=== PATIENT | male | born 1985 | race Caucasian/White ===

== ENCOUNTER 2020-03-07 14:19 | Emergency (ER) | payer MEDICAID ==
[~2020-03-07] VITALS: Ht 188 cm; Wt 154.7 kg
[2020-03-07 14:35] VITALS: Ht 188 cm; Wt 154.7 kg
[2020-03-07 15:45] VITALS: BP 143/71
== END 2020-03-07 15:45 | disposition home or self-care (01) ==
LOC: ED 14:19
DX: G56.02 Carpal tunnel syndrome, left upper limb (principal); F17.210 Nicotine dependence, cigarettes, uncomplicated; Z71.6 Tobacco abuse counseling
CPT/HCPCS: 99406